=== PATIENT | female | born 1955 | race Caucasian/White ===

== ENCOUNTER 2023-04-22 08:45 | Outpatient (CLI) | payer BC, SELFPAY | END 2023-04-22 08:46 | disposition home or self-care (01) | PROVIDERS: PCP Family Medicine; Visit Provider Family Medicine | DX: Z00.00 Encounter for general adult medical examination without abnormal findings (principal); M81.0 Age-related osteoporosis without current pathological fracture; G25.81 Restless legs syndrome; Z13.6 Encounter for screening for cardiovascular disorders; Z11.59 Encounter for screening for other viral diseases | CPT/HCPCS: 80053; 80061; 82330; 86803 ==

== ENCOUNTER 2023-05-05 14:03 | Outpatient (CLI) | payer BC, SELFPAY ==
--- NOTE | 2023-05-05 14:30 | CRLHL7_ITS ---
For Patients: As a result of the Century Cures Act, medical imaging exams and procedure reports are released immediately into your electronic medical record. You may view this report before your referring provider. If you have questions, please contact your health care provider. DXA BONE MINERAL DENSITY STUDY Reason for exam: Age-related osteoporosis without current pathology. Current height (in): 61. Weight (lb): 120. Menopause age: 46. Ethnicity: White. 1. Have you had a previous hip or vertebral fracture? No. 2. Have you had any fractures during your adult life which did not result from significant trauma (e.g., auto accident)? No. 3. Did either of your parents have a hip fracture? No. 4. Do you smoke? No. 5. Have you ever taken Glucocorticoids? No. 6. Do you have rheumatoid arthritis? No. 7. Do you have secondary osteoporosis? Yes. 8. Do you drink 3 or more alcoholic drinks per day? No. 9. Are you being treated for osteoporosis? Yes. 10. Have you ever taken any of the following medications: Actonel, Evista, Fosamax, Miacalcin, Reclast, Boniva, Forteo, HRT (i.e., estrogen/hormone therapy), Protelos, Prolia, Vitamin D, Calcium, other ??? please specify. ANSWER: Yes, Evista (i.e., raloxifene), vitamin D, and calcium. 11. Do you have any of the following medical conditions: Anorexia or bulimia, asthma or emphysema, end stage renal disease, hyperparathyroidism, any seizure disorders, cancer, inflammatory bowel diseases, hysterectomy, other ??? please specify. ANSWER: No. 12. What was your maximum height (inches)? 62. 13. Do you perform weight bearing exercise regularly? Yes. 14. Do you regularly consume dairy products? No. 15. Do you drink caffeinated beverages? No. If female: 16. At what age did your period start? 16. 17. Are you premenopausal? No. 18. How many full-term pregnancies have you had? 2. 19. Have you ever missed your period for more than 6 months in a row (not including or menopause)? No. TECHNIQUE: Bone mineral density study was performed using the [employer]. FINDINGS: The results of the study expressed as bone mineral density (BMD) are as follows: Lumbar spine L1 to L4: BMD: 0.708 g/cm2. T-score: -3.1. Z-score: -1.3 Neck Left: BMD: 0.663 g/cm2. T-score: -1.7. Z-score: -0.1 Right: BMD: 0.648 g/cm2. T-score: -1.8. Z-score: -0.3 Total Left: BMD: 0.746 g/cm2. T-score: -1.6. Z-score: -0.3 Right: BMD: 0.744 g/cm2. T-score: -1.6. Z-score: -0.4 IMPRESSION: Osteoporosis. Hans Billings M.D. Diagnostic Radiologist [email or web address] by: Hans Billings MD @ 05/06/2023 9:13:00 AM (Electronically Signed)
== END 2023-05-05 14:04 | disposition home or self-care (01) ==
LOC: RAD 14:03
PROVIDERS: PCP Family Medicine; Visit Provider Family Medicine
DX: M81.0 Age-related osteoporosis without current pathological fracture (principal)
CPT/HCPCS: 77080